=== PATIENT | female | born 1945 | race African-American/Black ===

== ENCOUNTER 2016-06-18 13:02 | Emergency (ER) | payer MEDICARE, OTHER ==
[~2016-06-18] VITALS: Ht 162.6 cm; Wt 108.9 kg
[~2016-06-18 13:02] MED LIST: ASPIRIN81 M3 PO; KEPPRA500 M4 ORAL; NKM; SIMVASTATIN20 MG ORAL
[2016-06-18 13:26] VITALS: BP 175/87
[2016-06-18 14:00] VITALS: BP 147/90
[2016-06-18 14:01] VITALS: BP 147/90
--- NOTE | 2016-06-18 15:07 | Emergency Room Report ---
History of Present Illness General Chief Complaint: General Complaint Source: Patient Present Illness HPI Patient has a history of epistaxis. She states that she had nosebleed 3 times in the last 3 days which made her concerned and then she came here for further evaluation. She denies any fever nausea vomiting diarrhea chills. Complains of some nasal congestion. Denies any cough runny nose or sore throat. Symptoms noted moderate moderate. She states that she had a large amount of bleeding with some clots yesterday which is what concerned her and she came for further evaluation. She denies any dizziness weakness or syncope.No other modifying factors. No other associated signs and symptoms. No other complaints were noted. She denies any nasal trauma although states that has been dry in house recently. Allergies: Coded Allergies: Cantaloupe (Verified Allergy, Unknown, 06/18/16) Patient History Past Medical History: none Past Surgical History: none Pertinent Family History: none Social History: Denies: alcohol use, drug use, smoking Reviewed Nursing Documentation: PMH: Agreed, PSxH: Agreed Nursing Documentation-PMH Past Medical History: No History, Except For Hx Cardiac Problems: No Hx Hypertension: No Hx Pacemaker: No Hx Asthma: No Hx COPD: No Hx Diabetes: No Hx Cancer: No Hx Gastrointestinal Problems: No Hx Dialysis: No History Of Psychiatric Problem: No Hx Neurological Problems: No Hx Cerebrovascular Accident: No Hx Seizures: Yes Review of Systems All Other Systems: negative except mentioned in HPI Physical Exam Vital Signs Date Time Temp Pulse Resp B/P Pulse Ox O2 Delivery O2 Flow Rate FiO2 06/18/16 13:08 98.1 87 16 175/87 94 Room Air Sp02 EP Interpretation: reviewed, normal General Appearance: normal inspection, well appearing, no apparent distress, alert Head: atraumatic Eyes: bilateral eye normal inspection ENT: normal ENT inspection, hearing grossly normal, normal voice Neck: normal inspection, full range of motion, supple, no bony tend Respiratory: normal inspection, lungs clear, normal breath sounds, no respiratory distress, no retraction, no wheezing Cardiovascular #1: regular rate, rhythm, no edema Gastrointestinal: normal inspection, normal bowel sounds, non tender, soft, no guarding, no hernia Genitourinary: no CVA tenderness Musculoskeletal: normal inspection, back normal, normal range of motion Neurologic: normal inspection, alert, responsive, speech normal Psychiatric: normal inspection, judgement/insight normal, mood/affect normal Skin: normal inspection, normal color, no rash Medical Decision Making Diagnostic Impression: Primary Impression: Anterior epistaxis ER Course Patient presents emergency department today complaining of a nosebleed. Differential considerations include anterior epistaxis, posterior epistaxis, arterial bleeding just name a few. Patient's exam is fairly benign. Bleeding has stopped. Differential I felt the patient discharged home. Patient's blood pressure was only slightly elevated. Recommend outpatient followup with primary care physician.Patient is advised to follow up with primary doctor in 2- 3 days and return the emergency room for any worsening symptoms and as needed. Last Vital Signs Date Time Temp Pulse Resp B/P Pulse Ox O2 Delivery O2 Flow Rate FiO2 06/18/16 14:01 98.1 18 147/90 97 Room Air 06/18/16 14:00 98 Status: improved Disposition: HOME, SELF-CARE Condition: Stable Patient Instructions: Nosebleed, Jyyo-il-Ivmc RYAN HUTTON M.D. Jun 18, 2016 15:07
== END 2016-06-18 14:05 | disposition home or self-care (01) ==
LOC: EMR 13:40
DX: R04.0 Epistaxis (principal); R09.81 Nasal congestion; Z91.018 Allergy to other foods
CPT/HCPCS: 99282

== ENCOUNTER 2017-12-26 15:27 | Emergency (ER) | payer MEDICARE ==
[~2017-12-26] VITALS: Ht 165.1 cm; Wt 121.6 kg
--- NOTE | 2017-12-26 16:43 | Diagnostic Imaging Report ---
Indication: Chest pain Technique: One view of the chest Comparison: 03/11/2014 Findings: Lungs and pleural spaces are clear. Heart size is upper limits normal. No significant interim change Impression: No acute process
[2017-12-26 17:51] LABS: BASOPHILS % (AUTO) 1.8 % (0.0-2.0); EOSINOPHILS % (AUTO) 1.1 % (0.0-3.0); HEMOGLOBIN 14.3 G/DL (12.0-16.0); LYMPHOCYTES % (AUTO) 17.8 % (20.0-45.0); MEAN CORPUSCULAR VOLUME 86 FL (80-99); MONOCYTES % (AUTO) 6.6 % (1.0-10.0); NEUTROPHILS % (AUTO) 72.8 % (45.0-75.0); PLATELET COUNT 286 K/UL (150-450); RED BLOOD COUNT 4.89 M/UL (4.20-5.40); RED CELL DISTRIBUTION WIDTH 11.5 % (11.6-14.8); WHITE BLOOD COUNT 10.9 K/UL (4.8-10.8)
[2017-12-26 18:04] LABS: ANION GAP 9 mmol/L (5-15); BLOOD UREA NITROGEN 12 mg/dL (7-18); CALCIUM 9.5 MG/DL (8.5-10.1); CARBON DIOXIDE 26 MMOL/L (21-32); CHLORIDE 102 MMOL/L (98-107); CREATININE 0.7 MG/DL (0.55-1.30); POTASSIUM 4.2 MMOL/L (3.5-5.1); SODIUM 137 MMOL/L (136-145)
[2017-12-26 18:19] LABS: ALANINE AMINOTRANSFERASE 24 U/L (12-78); ALBUMIN 3.5 G/DL (3.4-5.0); ALBUMIN/GLOBULIN RATIO 0.8 (1.0-2.7); ALKALINE PHOSPHATASE 62 U/L (46-116); ASPARTATE AMINO TRANSFERASE 17 U/L (15-37); BILIRUBIN,TOTAL 0.5 MG/DL (0.2-1.0); CKMB < 0.5 NG/ML (0.0-3.6); CREATINE KINASE 43 U/L (26-308)
--- NOTE | 2017-12-26 18:36 | Emergency Room Report ---
History of Present Illness General Chief Complaint: Generalized Weakness Source: Patient Present Illness HPI This patient states she's had recurrent episodes of lightheadedness and presyncope. She was recently admitted to [facility] for the same symptoms. He was also seen in her primary care physician's office today. Primary care physician noted that she had orthostatic hypotension. The patient does admit that she doesn't drink much water or fluids. She denies recent illness. She denies cough or congestion. She is fever or chills. She is headache or neck pain. She denies abdominal pain. She denies dysuria or hematuria. She has no other complaints. Allergies: Coded Allergies: Cantaloupe (Verified Allergy, Unknown, 06/18/16) Patient History Past Medical History: see triage record, CVA/TIA, seizures Social History: Denies: smoking, alcohol use, drug use Now: No Reviewed Nursing Documentation: PMH: Agreed; PSxH: Agreed Nursing Documentation-PMH Hx Cardiac Problems: No Hx Hypertension: No Hx Pacemaker: No Hx Asthma: No Hx COPD: No Hx Diabetes: No Hx Cancer: No Hx Gastrointestinal Problems: No Hx Dialysis: No Hx Neurological Problems: No Hx Cerebrovascular Accident: Yes Hx Seizures: Yes Review of Systems All Other Systems: negative except mentioned in HPI Physical Exam Vital Signs Date Time Temp Pulse Resp B/P (MAP) Pulse Ox O2 Delivery O2 Flow Rate FiO2 12/26/17 15:49 91 20 121/86 98 Room Air Sp02 EP Interpretation: reviewed, normal General Appearance: no apparent distress, alert, GCS 15, non-toxic Head: normocephalic, atraumatic Eyes: bilateral eye normal inspection, bilateral eye PERRL ENT: hearing grossly normal, normal pharynx, no angioedema, normal voice Neck: full range of motion, supple/symm/no masses Respiratory: chest non-tender, lungs clear, normal breath sounds, no respiratory distress, no retraction, no accessory muscle use, speaking full sentences Cardiovascular #1: regular rate, rhythm, no edema Gastrointestinal: normal bowel sounds, non tender, soft, non-distended, no guarding, no rebound Rectal: deferred Musculoskeletal: back normal, gait/station normal, normal range of motion, non- tender Neurologic: alert, oriented x3, responsive, motor strength/tone normal, sensory intact, speech normal Psychiatric: judgement/insight normal, memory normal, mood/affect normal, no suicidal/homicidal ideation Skin: normal color, no rash, warm/dry, well hydrated Medical Decision Making Diagnostic Impression: Primary Impression: Orthostatic hypotension Additional Impressions: Dehydration UTI (urinary tract infection) ER Course I suspect the presyncope that the patient is presenting with is a nonemergent in etiology. The patient was recently admitted to [facility] and had a full workup at that time. On physical exam, the patient is not hypotensive currently, although, the patient's primary care physician reports orthostatic hypotension, she has no findings of CHF, and no significant cardiac murmur suggestive of valvular heart disease or cardiac outflow obstruction. EKG showed no evidence of concerning findings of QT prolongation, Brugada syndrome or significant ST changes suggestive of acute ischemia, dysrhythmias or significant conduction abnormalities. On laboratory evaluation, blood sugar was normal and the patient is not anemic. The patient was counseled that, though unlikely, the possibility of an emergent cause of syncope may be present and that the patient should return immediately if symptoms persist or worsen. I believe the patient is stable for discharge to followup with her PMD for further workup. She is noted to have a urinary tract infection and will be given a course of antibiotics. Laboratory Tests Test 12/26/17 17:10 12/26/17 19:00 White Blood Count 10.9 K/UL (4.8-10.8) H Red Blood Count 4.89 M/UL (4.20-5.40) Hemoglobin 14.3 G/DL (12.0-16.0) Hematocrit 42.0 % (37.0-47.0) Mean Corpuscular Volume 86 FL (80-99) Mean Corpuscular Hemoglobin 29.3 PG (27.0-31.0) Mean Corpuscular Hemoglobin Concent 34.1 G/DL (32.0-36.0) Red Cell Distribution Width 11.5 % (11.6-14.8) L Platelet Count 286 K/UL (150-450) Mean Platelet Volume 9.4 FL (6.5-10.1) Neutrophils (%) (Auto) 72.8 % (45.0-75.0) Lymphocytes (%) (Auto) 17.8 % (20.0-45.0) L Monocytes (%) (Auto) 6.6 % (1.0-10.0) Eosinophils (%) (Auto) 1.1 % (0.0-3.0) Basophils (%) (Auto) 1.8 % (0.0-2.0) Sodium Level 137 MMOL/L (136-145) Potassium Level 4.2 MMOL/L (3.5-5.1) Chloride Level 102 MMOL/L (98-107) Carbon Dioxide Level 26 MMOL/L (21-32) Anion Gap 9 mmol/L (5-15) Blood Urea Nitrogen 12 mg/dL (7-18) Creatinine 0.7 MG/DL (0.55-1.30) Estimate Glomerular Filtration Rate > 60 mL/min (>60) Glucose Level 120 MG/DL (74-106) H Lactic Acid Level 1.40 mmol/L (0.4-2.0) Calcium Level 9.5 MG/DL (8.5-10.1) Total Bilirubin 0.5 MG/DL (0.2-1.0) Aspartate Amino Transferase (AST) 17 U/L (15-37) Alanine Aminotransferase (ALT) 24 U/L (12-78) Alkaline Phosphatase 62 U/L (46-116) Total Creatine Kinase 43 U/L (26-308) Creatine Kinase MB < 0.5 NG/ML (0.0-3.6) Creatine Kinase MB Relative Index 1.1 Troponin I 0.002 ng/mL (0.000-0.056) Total Protein 8.1 G/DL (6.4-8.2) Albumin 3.5 G/DL (3.4-5.0) Globulin 4.6 g/dL Albumin/Globulin Ratio 0.8 (1.0-2.7) L Urine Color Pale yellow Urine Appearance Clear Urine pH 5 (4.5-8.0) Urine Specific [place] 1.010 (1.005-1.035) Urine Protein Negative (NEGATIVE) Urine Glucose (UA) Negative (NEGATIVE) Urine Ketones Negative (NEGATIVE) Urine Blood 5+ (NEGATIVE) H Urine Nitrite Negative (NEGATIVE) Urine Bilirubin Negative (NEGATIVE) Urine Urobilinogen Normal MG/DL (0.0-1.0) Urine Leukocyte Esterase 2+ (NEGATIVE) H Urine RBC 10-15 /HPF (0 - 2) H Urine WBC 5-10 /HPF (0 - 2) H Urine Squamous Epithelial Cells Few /LPF (NONE/OCC) Urine Bacteria Few /HPF (NONE) Laboratory Tests Test 12/26/17 17:10 12/26/17 19:00 White Blood Count 10.9 K/UL (4.8-10.8) H Red Blood Count 4.89 M/UL (4.20-5.40) Hemoglobin 14.3 G/DL (12.0-16.0) Hematocrit 42.0 % (37.0-47.0) Mean Corpuscular Volume 86 FL (80-99) Mean Corpuscular Hemoglobin 29.3 PG (27.0-31.0) Mean Corpuscular Hemoglobin Concent 34.1 G/DL (32.0-36.0) Red Cell Distribution Width 11.5 % (11.6-14.8) L Platelet Count 286 K/UL (150-450) Mean Platelet Volume 9.4 FL (6.5-10.1) Neutrophils (%) (Auto) 72.8 % (45.0-75.0) Lymphocytes (%) (Auto) 17.8 % (20.0-45.0) L Monocytes (%) (Auto) 6.6 % (1.0-10.0) Eosinophils (%) (Auto) 1.1 % (0.0-3.0) Basophils (%) (Auto) 1.8 % (0.0-2.0) Sodium Level 137 MMOL/L (136-145) Potassium Level 4.2 MMOL/L (3.5-5.1) Chloride Level 102 MMOL/L (98-107) Carbon Dioxide Level 26 MMOL/L (21-32) Anion Gap 9 mmol/L (5-15) Blood Urea Nitrogen 12 mg/dL (7-18) Creatinine 0.7 MG/DL (0.55-1.30) Estimate Glomerular Filtration Rate > 60 mL/min (>60) Glucose Level 120 MG/DL (74-106) H Lactic Acid Level 1.40 mmol/L (0.4-2.0) Calcium Level 9.5 MG/DL (8.5-10.1) Total Bilirubin 0.5 MG/DL (0.2-1.0) Aspartate Amino Transferase (AST) 17 U/L (15-37) Alanine Aminotransferase (ALT) 24 U/L (12-78) Alkaline Phosphatase 62 U/L (46-116) Total Creatine Kinase 43 U/L (26-308) Creatine Kinase MB < 0.5 NG/ML (0.0-3.6) Creatine Kinase MB Relative Index 1.1 Troponin I 0.002 ng/mL (0.000-0.056) Total Protein 8.1 G/DL (6.4-8.2) Albumin 3.5 G/DL (3.4-5.0) Globulin 4.6 g/dL Albumin/Globulin Ratio 0.8 (1.0-2.7) L Urine Color Pale yellow Urine Appearance Clear Urine pH 5 (4.5-8.0) Urine Specific [place] 1.010 (1.005-1.035) Urine Protein Negative (NEGATIVE) Urine Glucose (UA) Negative (NEGATIVE) Urine Ketones Negative (NEGATIVE) Urine Blood 5+ (NEGATIVE) H Urine Nitrite Negative (NEGATIVE) Urine Bilirubin Negative (NEGATIVE) Urine Urobilinogen Normal MG/DL (0.0-1.0) Urine Leukocyte Esterase 2+ (NEGATIVE) H Urine RBC Pending Urine WBC Pending Urine Squamous Epithelial Cells Pending Urine Bacteria Pending EKG Diagnostic Results Rate: normal Rhythm: NSR ST Segments: no acute changes Other Impression Qwave in lead III Rhythm Strip Diag. Results EP Interpretation: yes Rate: 80's Rhythm: NSR, no PVC's, no ectopy Chest X-Ray Diagnostic Results Chest X-Ray Diagnostic Results : Chest X-Ray Ordered: Yes # of Views/Limited/Complete: 1 View Indication: Other Interpretation: no consolidation, no effusion, no pneumothorax, no acute cardiopulmonary disease Impression: No acute disease Last Vital Signs Date Time Temp Pulse Resp B/P (MAP) Pulse Ox O2 Delivery O2 Flow Rate FiO2 12/26/17 15:49 91 20 121/86 98 Room Air Status: improved Disposition: HOME, SELF-CARE Condition: Improved Patient Instructions: Near-Syncope, Uvkv-yr-Iolf Edita Silva DO Dec 26, 2017 18:36
[2017-12-26 19:16] LABS: APPEARANCE,URINE CLEAR; BILIRUBIN, URINE NEGATIVE (NEGATIVE); COLOR,URINE PALE YELLOW; GLUCOSE, URINE (UA) NEGATIVE (NEGATIVE); KETONES,URINE NEGATIVE (NEGATIVE); LEUKOCYTE ESTERASE ,URINE 2+ (NEGATIVE); NITRITE,URINE NEGATIVE (NEGATIVE); PH,URINE 5 (4.5-8.0); PROTEIN,URINE NEGATIVE (NEGATIVE); UROBILINOGEN,URINE NORMAL MG/DL (0.0-1.0)
[2017-12-26] MEDS ORDERED: NITROFURANTOIN100 M2 ORAL (19:34)
[2017-12-26 19:47] VITALS: BP 130/88
[2017-12-26 19:51] VITALS: BP 130/88
[2017-12-27] MEDS ORDERED: KEPPRA500 M4 ORAL (17:27)
[2017-12-27] MEDS ORDERED: ASPIR 8181 MG ORAL (17:27)
[2017-12-27] MEDS ORDERED: SIMVASTATIN20 MG ORAL (17:27)
--- NOTE | 2017-12-28 15:09 | Cardiology Report ---
APPROVED REPORT EKG Measurement Heart [id number] Normal sinus rhythm Cannot rule out Anterior infarct, age undetermined Abnormal ECG
== END 2017-12-26 20:41 | disposition home or self-care (01) ==
LOC: EMR 17:40
DX: I95.1 Orthostatic hypotension (principal); E86.0 Dehydration; N39.0 Urinary tract infection, site not specified
CPT/HCPCS: 36415; 71045; 80053; 81003; 82550; 82553; 83605; 84484; 85025; 87040; 93005; 96360; 99284

== ENCOUNTER 2017-12-27 16:19 | Inpatient (IN) | payer MEDICARE, MEDICAID ==
[~2017-12-27] VITALS: Ht 162.6 cm; Wt 121.6 kg
[~2017-12-27 16:19] MED LIST changes: +NITROFURANTOIN100 M2 ORAL
[2017-12-27 16:41] VITALS: BP 127/82
[2017-12-27] MEDS ORDERED: KEPPRA500 M4 ORAL (17:27)
[2017-12-27] MEDS ORDERED: ASPIR 8181 MG ORAL (17:27)
[2017-12-27] MEDS ORDERED: SIMVASTATIN20 MG ORAL (17:27)
[2017-12-27] MEDS ORDERED: Ampicillin/Sulbactam Sod 3 GM in NS 110 ML IVPB ONE (17:30)
[2017-12-27 17:52] LABS: BASOPHILS % (AUTO) 1.6 % (0.0-2.0); EOSINOPHILS % (AUTO) 1.8 % (0.0-3.0); HEMATOCRIT 40.6 % (37.0-47.0); HEMOGLOBIN 13.8 G/DL (12.0-16.0); LYMPHOCYTES % (AUTO) 25.4 % (20.0-45.0); MEAN CORPUSCULAR VOLUME 86 FL (80-99); MONOCYTES % (AUTO) 5.7 % (1.0-10.0); NEUTROPHILS % (AUTO) 65.5 % (45.0-75.0); PLATELET COUNT 294 K/UL (150-450); RED BLOOD COUNT 4.71 M/UL (4.20-5.40); RED CELL DISTRIBUTION WIDTH 11.3 % (11.6-14.8); WHITE BLOOD COUNT 8.5 K/UL (4.8-10.8)
[2017-12-27 17:57] LABS: ANION GAP 12 mmol/L (5-15); BLOOD UREA NITROGEN 7 mg/dL (7-18); CALCIUM 9.1 MG/DL (8.5-10.1); CARBON DIOXIDE 23 MMOL/L (21-32); CHLORIDE 105 MMOL/L (98-107); CREATININE 0.6 MG/DL (0.55-1.30); POTASSIUM 3.8 MMOL/L (3.5-5.1); SODIUM 140 MMOL/L (136-145)
[2017-12-27 18:03] LABS: ALANINE AMINOTRANSFERASE 26 U/L (12-78); ALBUMIN 3.4 G/DL (3.4-5.0); ALBUMIN/GLOBULIN RATIO 0.8 (1.0-2.7); ALKALINE PHOSPHATASE 58 U/L (46-116); ASPARTATE AMINO TRANSFERASE 14 U/L (15-37); BILIRUBIN,TOTAL 0.8 MG/DL (0.2-1.0)
--- NOTE | 2017-12-27 18:44 | History & Physical ---
History and Physical History & Physicial DATE OF ADMISSION: 12/27/17 REASON FOR ADMISSION: positive blood culture HISTORY OF PRESENT ILLNESS: This is a 72-year-old obese female with history of htn, Seizure disorder, CVA who presented to the ER yesterday for orthostatic hypotension, dizziness and weakness. She was seen in my office in a wheelchair and stated she couldnt stand bc of weakness. Orthostatics were positive in office from laying to sitting (SBP Drop of 30). she was given IVF and had Bcx yesterday in ER prior to dc home. She was called and told to return bc of GPC blood culture. She denies fevers or chills. She denies having dysuria. PAST MEDICAL HISTORY: HTN, CVA, Seizure PAST SURGICAL HISTORY: Right knee surgery and right shoulder surgery after fall in a Workmen's comp case. MEDICATIONS: ASA, Statin ALLERGIES: No known drug allergies. PAST SOCIAL HISTORY: She denies smoking cigarette, using drugs, or drinking alcohol. FAMILY HISTORY: Noncontributory. REVIEW OF SYSTEMS: A 10-point review of systems was done and negative except pertinent positives as mentioned above. Last 24 Hour Vital Signs Date Time Temp Pulse Resp B/P (MAP) Pulse Ox O2 Delivery O2 Flow Rate FiO2 12/27/17 16:41 99.1 87 16 127/82 93 Room Air 12/27/17 16:35 99.1 87 16 127/82 93 Room Air PHYSICAL EXAMINATION: GENERAL: The patient is in no acute distress. The patient is alert, awake, HEENT: Oropharynx is clear. No blood seen. Sclerae are anicteric. Normocephalic/atraumatic head. NECK: Supple. No JVD. LUNGS: Clear to auscultation bilaterally. HEART: Heart sounds are regular rate rhythm. Normal S1 and S2. ABDOMEN: Obese, nontender, and nondistended. EXTREMITIES: No clubbing, cyanosis, or edema. SKIN: No jaundice or decubitus ulcers noted. PSYCHIATRY: The patient has appropriate affect and mood. LABORATORY DATA: Laboratory Tests Test 12/27/17 17:10 12/27/17 17:26 White Blood Count 8.5 K/UL (4.8-10.8) Red Blood Count 4.71 M/UL (4.20-5.40) Hemoglobin 13.8 G/DL (12.0-16.0) Hematocrit 40.6 % (37.0-47.0) Mean Corpuscular Volume 86 FL (80-99) Mean Corpuscular Hemoglobin 29.3 PG (27.0-31.0) Mean Corpuscular Hemoglobin Concent 34.1 G/DL (32.0-36.0) Red Cell Distribution Width 11.3 % (11.6-14.8) L Platelet Count 294 K/UL (150-450) Mean Platelet Volume 9.5 FL (6.5-10.1) Neutrophils (%) (Auto) 65.5 % (45.0-75.0) Lymphocytes (%) (Auto) 25.4 % (20.0-45.0) Monocytes (%) (Auto) 5.7 % (1.0-10.0) Eosinophils (%) (Auto) 1.8 % (0.0-3.0) Basophils (%) (Auto) 1.6 % (0.0-2.0) Sodium Level 140 MMOL/L (136-145) Potassium Level 3.8 MMOL/L (3.5-5.1) Chloride Level 105 MMOL/L (98-107) Carbon Dioxide Level 23 MMOL/L (21-32) Anion Gap 12 mmol/L (5-15) Blood Urea Nitrogen 7 mg/dL (7-18) Creatinine 0.6 MG/DL (0.55-1.30) Estimat Glomerular Filtration Rate > 60 mL/min (>60) Glucose Level 121 MG/DL (74-106) H Calcium Level 9.1 MG/DL (8.5-10.1) Total Bilirubin 0.8 MG/DL (0.2-1.0) Aspartate Amino Transf (AST/SGOT) 14 U/L (15-37) L Alanine Aminotransferase (ALT/SGPT) 26 U/L (12-78) Alkaline Phosphatase 58 U/L (46-116) Total Protein 7.8 G/DL (6.4-8.2) Albumin 3.4 G/DL (3.4-5.0) Globulin 4.4 g/dL Albumin/Globulin Ratio 0.8 (1.0-2.7) L Lactic Acid Level 1.20 mmol/L (0.4-2.0) IMPRESSION: 1. Bacteremia - possibly contaminent 2. Orthostatic hypotension 3. weakness 4. Hypertension. 5. Morbid obesity. 6. Seizure d/o PLAN: 1. Admit to Medsurg 2. c/w keppra 3. PT eval 4. IVF - NS @ 75cc/hr 5. repeat cx 6. f/u cultures 7. abx - Vanco anticipate patient needs to go to SNF bc of severe weakness DVT px - heparin FC Kj Delgado MD Dec 27, 2017 18:44
--- NOTE | 2017-12-27 18:45 | Emergency Room Report ---
History of Present Illness General Chief Complaint: Abnormal Labs Source: Patient Present Illness HPI Patient is a 72-year-old female presented after increased generalized weakness and dizziness. The patient recent positive blood cultures while in emergency department yesterday for gram-positive cocci. The patient was having continued generalized weakness. She reports feeling dizzy with standing. The patient was noted to be orthostatic while at the primary care physician's office yesterday. The urinalysis showed some evidence of urinary infection yesterday Allergies: Coded Allergies: Cantaloupe (Verified Allergy, Unknown, 06/18/16) Patient History Past Medical History: see triage record Reviewed Nursing Documentation: PMH: Agreed; PSxH: Agreed Nursing Documentation-PMH Past Medical History: No History, Except For Hx Cardiac Problems: No - high cholesterol Hx Hypertension: No Hx Pacemaker: No Hx Asthma: No Hx COPD: No Hx Diabetes: No Hx Cancer: No Hx Gastrointestinal Problems: No Hx Dialysis: No Hx Neurological Problems: No Hx Cerebrovascular Accident: Yes Hx Seizures: Yes Review of Systems All Other Systems: negative except mentioned in HPI Physical Exam Vital Signs Date Time Temp Pulse Resp B/P (MAP) Pulse Ox O2 Delivery O2 Flow Rate FiO2 12/27/17 16:35 99.1 87 16 127/82 93 Room Air Sp02 EP Interpretation: reviewed, normal General Appearance: normal inspection, well appearing, no apparent distress, alert, GCS 15, obese Head: atraumatic ENT: normal ENT inspection, hearing grossly normal, normal voice Neck: normal inspection, supple, no bony tend, limited range of motion Respiratory: normal inspection, lungs clear, normal breath sounds, no respiratory distress, no retraction, no wheezing Cardiovascular #1: regular rate, rhythm Gastrointestinal: normal inspection, normal bowel sounds, non tender, soft, no guarding, no hernia Genitourinary: no CVA tenderness Musculoskeletal: normal inspection, back normal, normal range of motion Neurologic: normal inspection, alert, oriented x3, responsive, auditing clerk III-XII nml as tested, speech normal Psychiatric: normal inspection, judgement/insight normal, mood/affect normal Skin: normal inspection, normal color, no rash Medical Decision Making Diagnostic Impression: Primary Impression: Gram positive sepsis ER Course Patient presented for generalized weakness. Differential diagnosis included was not limited to anemia, urinary tract infection, electrolyte abnormality, hypothyroidism, myocardial infarction, myasthenia gravis, dehydration, among others. Because of complexity of patient's case laboratory testing and imaging studies were ordered.Patient was noted to have normal white blood count per she started empirically on IV antibiotics. The lactic acid level was normal.Dr. Kj Delgado was contacted for inpatient management Labs Test 12/27/17 17:10 12/27/17 17:26 White Blood Count 8.5 K/UL (4.8-10.8) Red Blood Count 4.71 M/UL (4.20-5.40) Hemoglobin 13.8 G/DL (12.0-16.0) Hematocrit 40.6 % (37.0-47.0) Mean Corpuscular Volume 86 FL (80-99) Mean Corpuscular Hemoglobin 29.3 PG (27.0-31.0) Mean Corpuscular Hemoglobin Concent 34.1 G/DL (32.0-36.0) Red Cell Distribution Width 11.3 % (11.6-14.8) Platelet Count 294 K/UL (150-450) Mean Platelet Volume 9.5 FL (6.5-10.1) Neutrophils (%) (Auto) 65.5 % (45.0-75.0) Lymphocytes (%) (Auto) 25.4 % (20.0-45.0) Monocytes (%) (Auto) 5.7 % (1.0-10.0) Eosinophils (%) (Auto) 1.8 % (0.0-3.0) Basophils (%) (Auto) 1.6 % (0.0-2.0) Sodium Level 140 MMOL/L (136-145) Potassium Level 3.8 MMOL/L (3.5-5.1) Chloride Level 105 MMOL/L (98-107) Carbon Dioxide Level 23 MMOL/L (21-32) Anion Gap 12 mmol/L (5-15) Blood Urea Nitrogen 7 mg/dL (7-18) Creatinine 0.6 MG/DL (0.55-1.30) Estimat Glomerular Filtration Rate > 60 mL/min (>60) Glucose Level 121 MG/DL (74-106) Calcium Level 9.1 MG/DL (8.5-10.1) Total Bilirubin 0.8 MG/DL (0.2-1.0) Aspartate Amino Transf (AST/SGOT) 14 U/L (15-37) Alanine Aminotransferase (ALT/SGPT) 26 U/L (12-78) Alkaline Phosphatase 58 U/L (46-116) Total Protein 7.8 G/DL (6.4-8.2) Albumin 3.4 G/DL (3.4-5.0) Globulin 4.4 g/dL Albumin/Globulin Ratio 0.8 (1.0-2.7) Lactic Acid Level 1.20 mmol/L (0.4-2.0) Last Vital Signs Date Time Temp Pulse Resp B/P (MAP) Pulse Ox O2 Delivery O2 Flow Rate FiO2 12/27/17 16:41 99.1 87 16 127/82 93 Room Air Status: unchanged Disposition: ADMITTED INPATIENT Condition: Stable Referrals: Kj Delgado MD (PCP) Ruel Enriquez MD Dec 27, 2017 18:45
[2017-12-27 19:23] VITALS: BP 139/77
[2017-12-27 19:46] VITALS: BP 147/89
[2017-12-27] MEDS ORDERED: Vancomycin 1.5 GM/D5W 250ML IVPB SCH ×2 (20:00→21:00)
[2017-12-27] MEDS: Aspirin EC 81mg tab ORAL SCH (21:12)
[2017-12-27] MEDS: Heparin 5000 units/ml inj SUBQ SCH (21:17)
[2017-12-28] VITALS: BP 130/71
[2017-12-28 04:00] VITALS: BP 128/72
[2017-12-28 08:00] VITALS: BP 112/69
[2017-12-28 08:16] LABS: EOSINOPHILS % (AUTO) 2.6 % (0.0-3.0); HEMATOCRIT 35.7 % (37.0-47.0); LYMPHOCYTES % (AUTO) 30.3 % (20.0-45.0); MEAN CORPUSCULAR VOLUME 84 FL (80-99); MONOCYTES % (AUTO) 8.8 % (1.0-10.0); NEUTROPHILS % (AUTO) 57.4 % (45.0-75.0); PLATELET COUNT 238 K/UL (150-450); RED BLOOD COUNT 4.25 M/UL (4.20-5.40); RED CELL DISTRIBUTION WIDTH 11.7 % (11.6-14.8); WHITE BLOOD COUNT 8.4 K/UL (4.8-10.8)
[2017-12-28 08:44] LABS: ANION GAP 8 mmol/L (5-15); BLOOD UREA NITROGEN 10 mg/dL (7-18); CALCIUM 8.5 MG/DL (8.5-10.1); CARBON DIOXIDE 26 MMOL/L (21-32); CHLORIDE 107 MMOL/L (98-107); CREATININE 0.7 MG/DL (0.55-1.30); POTASSIUM 3.7 MMOL/L (3.5-5.1); SODIUM 141 MMOL/L (136-145)
[2017-12-28] MEDS ORDERED: Vancomycin 1gm in D5W 275ml IVPB SCH (09:00)
[2017-12-28] MEDS: Aspirin EC 81mg tab ORAL SCH (09:13)
[2017-12-28] MEDS: Heparin 5000 units/ml inj SUBQ SCH ×2 (09:15→21:12)
[2017-12-28 12:00] VITALS: BP 116/69
--- NOTE | 2017-12-28 14:22 | General Progress Note ---
Assessment/Plan Problem List: (1) Gram positive sepsis ICD Codes: A41.89 - Other specified sepsis SNOMED: 970698478 (2) Hypertension ICD Codes: I10 - Hypertension SNOMED: 96769388 (3) Seizure disorder ICD Codes: G40.909 - Epilepsy, unspecified, not intractable,without status epilepticus SNOMED: 053418408 (4) Old lacunar stroke without late effect ICD Codes: Z86.73 - Old lacunar stroke without late effect SNOMED: 367725920 Assessment/Plan abxs continue with seizure meds PT Subjective Allergies: Coded Allergies: Cantaloupe (Verified Allergy, Unknown, 06/18/16) Subjective feels better Objective Last 24 Hour Vital Signs Date Time Temp Pulse Resp B/P (MAP) Pulse Ox O2 Delivery O2 Flow Rate FiO2 12/28/17 12:00 97.4 69 18 116/69 (85) 100 12/28/17 12:00 73 12/28/17 09:00 Room Air 12/28/17 08:00 74 12/28/17 08:00 98.2 73 18 112/69 (83) 96 12/28/17 06:36 86 90 12/28/17 04:00 97.9 74 18 128/72 (90) 98 12/28/17 04:00 74 12/28/17 00:00 97.6 73 18 130/71 (90) 100 12/28/17 00:00 79 12/27/17 22:50 Room Air 12/27/17 20:00 84 12/27/17 19:46 98.0 86 18 147/89 (108) 97 12/27/17 19:25 98.2 87 16 139/77 100 Room Air 12/27/17 19:23 98.2 68 16 139/77 100 Room Air 12/27/17 16:41 99.1 87 16 127/82 93 Room Air 12/27/17 16:35 99.1 87 16 127/82 93 Room Air Intake and Output 12/27/17 12/28/17 19:00 07:00 Intake Total 110 ml 760 ml Balance 110 ml 760 ml Intake Oral 0 ml 100 ml IV Total 110 ml 660 ml # Voids 3 Laboratory Tests 12/27/17 17:10: White Blood Count 8.5, Red Blood Count 4.71, Hemoglobin 13.8, Hematocrit 40.6, Mean Corpuscular Volume 86, Mean Corpuscular Hemoglobin 29.3, Mean Corpuscular Hemoglobin Concent 34.1, Red Cell Distribution Width 11.3L, Platelet Count 294, Mean Platelet Volume 9.5, Neutrophils (%) (Auto) 65.5, Lymphocytes (%) (Auto) 25.4, Monocytes (%) (Auto) 5.7, Eosinophils (%) (Auto) 1.8, Basophils (%) (Auto ) 1.6, Sodium Level 140, Potassium Level 3.8, Chloride Level 105, Carbon Dioxide Level 23, Anion Gap 12, Blood Urea Nitrogen 7, Creatinine 0.6, Estimat Glomerular Filtration Rate > 60, Glucose Level 121H, Calcium Level 9.1, Total Bilirubin 0.8, Aspartate Amino Transf (AST/SGOT) 14L, Alanine Aminotransferase ( ALT/SGPT) 26, Alkaline Phosphatase 58, Total Protein 7.8, Albumin 3.4, Globulin 4.4, Albumin/Globulin Ratio 0.8L 12/27/17 17:26: Lactic Acid Level 1.20 12/28/17 06:35: White Blood Count 8.4, Red Blood Count 4.25, Hemoglobin 12.0, Hematocrit 35.7L, Mean Corpuscular Volume 84, Mean Corpuscular Hemoglobin 28.3, Mean Corpuscular Hemoglobin Concent 33.6, Red Cell Distribution Width 11.7, Platelet Count 238, Mean Platelet Volume 9.7, Neutrophils (%) (Auto) 57.4, Lymphocytes (%) (Auto) 30.3, Monocytes (%) (Auto) 8.8, Eosinophils (%) (Auto) 2.6, Basophils (%) (Auto ) 1.0, Sodium Level 141, Potassium Level 3.7, Chloride Level 107, Carbon Dioxide Level 26, Anion Gap 8, Blood Urea Nitrogen 10, Creatinine 0.7, Estimat Glomerular Filtration Rate > 60, Glucose Level 107H, Calcium Level 8.5 Height (Feet): 5 Height (Inches): 4.00 Weight (Pounds): 268 Cardiovascular: normal rate Respiratory/Chest: lungs clear Abdomen: soft Andriy Fernando MD Dec 28, 2017 14:22
--- NOTE | 2017-12-28 14:42 | Infectious Diseases Prog Note ---
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 sepsis, ? contaminant 2) recent + ua, ? uti 3) pmh noted P) 1) vancomycin, rocephin 2) check blood cultures, labs and ua/uc 3) thank you Subjective Allergies: Coded Allergies: April (Verified Allergy, Unknown, 06/18/16) Objective Vital Signs Last 24 Hour Vital Signs Date Time Temp Pulse Resp B/P (MAP) Pulse Ox O2 Delivery O2 Flow Rate FiO2 12/28/17 12:00 97.4 69 18 116/69 (85) 100 12/28/17 12:00 73 12/28/17 09:00 Room Air 12/28/17 08:00 74 12/28/17 08:00 98.2 73 18 112/69 (83) 96 12/28/17 06:36 86 90 12/28/17 04:00 97.9 74 18 128/72 (90) 98 12/28/17 04:00 74 12/28/17 00:00 97.6 73 18 130/71 (90) 100 12/28/17 00:00 79 12/27/17 22:50 Room Air 12/27/17 20:00 84 12/27/17 19:46 98.0 86 18 147/89 (108) 97 12/27/17 19:25 98.2 87 16 139/77 100 Room Air 12/27/17 19:23 98.2 68 16 139/77 100 Room Air 12/27/17 16:41 99.1 87 16 127/82 93 Room Air 12/27/17 16:35 99.1 87 16 127/82 93 Room Air Height (Feet): 5 Height (Inches): 4.00 Weight (Pounds): 268 Microbiology Date/Time Source Procedure Growth Status 12/27/17 18:00 Rectum Received Laboratory Tests Test 12/27/17 17:10 12/27/17 17:26 12/28/17 06:35 White Blood Count 8.5 K/UL (4.8-10.8) 8.4 K/UL (4.8-10.8) Red Blood Count 4.71 M/UL (4.20-5.40) 4.25 M/UL (4.20-5.40) Hemoglobin 13.8 G/DL (12.0-16.0) 12.0 G/DL (12.0-16.0) Hematocrit 40.6 % (37.0-47.0) 35.7 % (37.0-47.0) L Mean Corpuscular Volume 86 FL (80-99) 84 FL (80-99) Mean Corpuscular Hemoglobin 29.3 PG (27.0-31.0) 28.3 PG (27.0-31.0) Mean Corpuscular Hemoglobin Concent 34.1 G/DL (32.0-36.0) 33.6 G/DL (32.0-36.0) Red Cell Distribution Width 11.3 % (11.6-14.8) L 11.7 % (11.6-14.8) Platelet Count 294 K/UL (150-450) 238 K/UL (150-450) Mean Platelet Volume 9.5 FL (6.5-10.1) 9.7 FL (6.5-10.1) Neutrophils (%) (Auto) 65.5 % (45.0-75.0) 57.4 % (45.0-75.0) Lymphocytes (%) (Auto) 25.4 % (20.0-45.0) 30.3 % (20.0-45.0) Monocytes (%) (Auto) 5.7 % (1.0-10.0) 8.8 % (1.0-10.0) Eosinophils (%) (Auto) 1.8 % (0.0-3.0) 2.6 % (0.0-3.0) Basophils (%) (Auto) 1.6 % (0.0-2.0) 1.0 % (0.0-2.0) Sodium Level 140 MMOL/L (136-145) 141 MMOL/L (136-145) Potassium Level 3.8 MMOL/L (3.5-5.1) 3.7 MMOL/L (3.5-5.1) Chloride Level 105 MMOL/L (98-107) 107 MMOL/L (98-107) Carbon Dioxide Level 23 MMOL/L (21-32) 26 MMOL/L (21-32) Anion Gap 12 mmol/L (5-15) 8 mmol/L (5-15) Blood Urea Nitrogen 7 mg/dL (7-18) 10 mg/dL (7-18) Creatinine 0.6 MG/DL (0.55-1.30) 0.7 MG/DL (0.55-1.30) Estimat Glomerular Filtration Rate > 60 mL/min (>60) > 60 mL/min (>60) Glucose Level 121 MG/DL (74-106) H 107 MG/DL (74-106) H Calcium Level 9.1 MG/DL (8.5-10.1) 8.5 MG/DL (8.5-10.1) Total Bilirubin 0.8 MG/DL (0.2-1.0) Aspartate Amino Transf (AST/SGOT) 14 U/L (15-37) L Alanine Aminotransferase (ALT/SGPT) 26 U/L (12-78) Alkaline Phosphatase 58 U/L (46-116) Total Protein 7.8 G/DL (6.4-8.2) Albumin 3.4 G/DL (3.4-5.0) Globulin 4.4 g/dL Albumin/Globulin Ratio 0.8 (1.0-2.7) L Lactic Acid Level 1.20 mmol/L (0.4-2.0) Current Medications Medications (Trade) Dose Ordered Sig/[place] Route PRN Reason Start Time Stop Time Status Last Admin Dose Admin Acetaminophen (Tylenol) 650 mg Q4H PRN ORAL Mild Pain (Pain Scale 1-3) 12/27/17 18:45 01/26/18 18:44 Aspirin (Ecotrin) 81 mg DAILY ORAL 12/27/17 19:00 01/26/18 18:59 12/28/17 09:13 Dextrose (Dextrose 50%) 25 ml Q30M PRN IV Hypoglycemia 12/27/17 18:45 01/26/18 18:44 Dextrose (Dextrose 50%) 50 ml Q30M PRN IV Hypoglycemia 12/27/17 18:45 01/26/18 18:44 Heparin Sodium (Porcine) (Heparin 5000 units/ml) 5,000 units EVERY 12 HOURS SUBQ 12/27/17 21:00 01/26/18 20:59 12/28/17 09:15 Levetiracetam (Keppra) 500 mg EVERY 12 HOURS ORAL 12/27/17 21:00 01/26/18 20:59 12/28/17 09:13 Sodium Chloride 1,000 ml @ 75 mls/hr [id number] IV 12/27/17 18:45 01/26/18 18:44 12/28/17 09:17 Vancomycin HCl (Vanco rx to dose) 1 ea DAILY PRN MISC Per rx protocol 12/27/17 19:00 01/26/18 18:59 Vancomycin HCl 1 gm/Dextrose 275 ml @ 183.708 mls/hr Q12H IVPB 12/28/17 09:00 01/02/18 08:59 12/28/17 09:13 Sadie Denton MD Dec 28, 2017 14:42
--- NOTE | 2017-12-28 14:58 | Cardiology Report ---
APPROVED REPORT EKG Measurement Heart [id number] Sinus rhythm Otherwise normal ECG
[2017-12-28 16:00] VITALS: BP 129/74
[2017-12-28] MEDS ORDERED: cefTRIAXone 1 GM in D5W 50 ML IVPB SCH (17:00)
[2017-12-28] MEDS: cefTRIAXone 1 GM in D5W 50 ML IVPB SCH (17:01)
--- NOTE | 2017-12-28 18:00 | Consultation ---
DATE OF CONSULTATION: 12/28/2017 INFECTIOUS DISEASES CONSULTATION CONSULTING PHYSICIAN: Sadie Denton M.D. ATTENDING PHYSICIAN: Kj Delgado M.D. REASON FOR CONSULTATION: Possible coagulase-negative Staph bacteremia, possible UTI, possible sepsis. CHIEF COMPLAINT: The patient's chief complaint coming into hospital is gram-positive bacteremia, UTI, and possible sepsis. HISTORY OF PRESENT ILLNESS: This is a very pleasant, 72-year-old female, who was recently at [facility] Emergency Room for orthostatic hypotension. At that time she had dizziness per the records, presyncope and lightheadedness. The patient had positive urinalysis with 2+ leukocyte esterase and 5 to 10 white blood cells. It is unclear if the patient was treated for urinary tract infection at that time. The patient got blood cultures on December 26, 2017 from the emergency room. The patient was noted to have positive blood cultures and was admitted to [facility] on January 01, 2018 for possible gram-positive bacteremia. The patient's blood culture grew out 2/4 coagulase-negative Staph. Repeat blood culture at [place] are pending. The patient started on vancomycin. The patient on 12/26/2017 in the ER visit had a positive UA with 2+ leukocyte esterase and 5 to 10 white blood cells. Infectious diseases consultation requested for antibiotic management. The patient will be placed on vancomycin and also Rocephin to cover possible urinary tract infection especially with presyncope and she could have a complicated UTI. Also the patient could be septic per the presyncope, dizziness, and weakness. The patient currently on vancomycin and Rocephin for now. REVIEW OF SYSTEMS: CONSTITUTIONAL: Generalized fatigue. No focal weakness. She did come in with dizziness and presyncope. Positive blood cultures. Currently she is alert and responsive. HEAD AND NECK: No head pain, neck pain, or neck stiffness. No change in vision. CARDIAC: No chest pain or palpitations. GASTROINTESTINAL: No nausea, vomiting, abdominal pain, or diarrhea. GENITOURINARY: No CVA tenderness. Plus or minus dysuria, frequency. PULMONARY: No congestion, shortness of breath, hemoptysis, or secretions. SKIN: No rash or itching. EXTREMITIES: No extremity pain. NEUROLOGIC: No seizures. She has no weight loss, night sweats, fevers. PAST MEDICAL HISTORY: The patient's past medical history includes history of the following. The patient has a past medical history of hypertension, seizure disorder, history of CVA, history of orthostatic hypotension, dizziness and weakness. No history of diabetes mentioned. History of right knee surgery and shoulder surgery in the past. She does have history of hyperlipidemia looks like about otherwise negative cardiac history. No history of cancer. ALLERGIES: Include cantaloupes. No antibiotic allergies. SOCIAL HISTORY: Negative for smoking, alcohol, or drug abuse. FAMILY HISTORY: Noncontributory. Negative for tuberculosis, diabetes or cancer. MEDICATIONS: Upon reviewing the MAR, she is on the following medications. I put her on Rocephin. She has been on vancomycin. She is on heparin. She is on Keppra. She is on aspirin and acetaminophen. She is on IV fluids . Outside medications were noted and reconciliated. She was on aspirin, Levetiracetam or Keppra. She was given nitrofurantoin it looks like. She is also on simvastatin or Zocor. PHYSICAL EXAMINATION: VITAL SIGNS: Temperature 97.4, pulse rate 72, respiratory rate 18, blood pressure 116/69, saturation is 100%. GENERAL: Alert and responsive, no acute distress. Oriented x3. HEAD AND NECK EXAM: Oral exam, no thrush. Eye exam, no icterus. Neck is supple. No JVD. Normocephalic. No acute process. NECK: Supple. LUNGS: Clear bilaterally. No rhonchi or rales. HEART: Regular. No obvious gallop. No friction rub. ABDOMEN: Soft. Positive bowel sounds. Nontender. SKIN: No rash. MUSCULOSKELETAL: No effusion. Legs are without cellulitis. PERIPHERAL VASCULAR: No cyanosis or gangrene. GENITOURINARY: No Cabrera. No CVA tenderness. LINE SITES: Without phlebitis. NEUROLOGIC: Intact. Nonfocal. Alert and oriented. LABORATORY AND DIAGNOSTIC DATA: Laboratory data as follows. White count 8.4, hemoglobin 12.0. Creatinine is 0.7. Chest x-ray from the recent ER visit was negative for consolidation. Blood cultures at that time grew out 2/4 coagulase-negative Staph. Urinalysis had 2+ leukocyte esterase, 5 to 10 white blood cells. No urine culture was done. Chest x-ray is negative. ASSESSMENT AND PLAN: 1. The patient has positive blood cultures with coagulase-negative Staph 2/4 likely contaminant. The patient does not have fevers. She does not have central line. She does not have cellulitis or open wounds. She was started on vancomycin for possible bacteremia and sepsis. She also has what looks like urinary tract infection and she has been given Macrobid, I believe. The patient is currently on vancomycin. I will add Rocephin for UTI coverage because of her symptoms. She certainly could have a complicated urinary tract infection with dizziness, presyncope, and generalized fatigue. Continue vancomycin and Rocephin. Recheck cultures here at this current admission. Blood cultures are negative. Consider stopping antibiotics and consider that the blood cultures from the ER visit 03/31 are likely contaminant with coagulase-negative Staph. We will check UA and C and S. Continue Rocephin for UTI. Pending culture results and urinalysis. 2. The patient has history of hypertension. Blood pressure treatment per primary. 3. Seizures. 4. CVA. 5. Obesity. 6. No history of diabetes. 7. Possible hyperlipidemia. 8. History of right knee surgery and right shoulder surgery. 9. The patient is on statin. 10. Dizziness, presyncope, orthostatic hypotension. 11. Allergies to cantaloupe. 12. No antibiotic allergies. 13. Social history is negative for smoking, alcohol, or drug abuse. 14. Family History is noncontributory. 15. MAR was noted. 16. Case discussed with RN. 17. Continue treatment per Dr. Delgado and consultants. 18. Notes and records were noted and orders were entered. Sadie Denton M.D. DR: Jorge JOB#: [id number] CC:
[2017-12-28 20:00] VITALS: BP 127/57
[2017-12-28] MEDS: Vancomycin 1 GM in D5W 275 ML IVPB SCH (21:41)
[2017-12-28 23:19] LABS: APPEARANCE,URINE SLIGHTLY CLOUDY; BILIRUBIN, URINE NEGATIVE (NEGATIVE); COLOR,URINE YELLOW; GLUCOSE, URINE (UA) NEGATIVE (NEGATIVE); KETONES,URINE NEGATIVE (NEGATIVE); LEUKOCYTE ESTERASE ,URINE 3+ (NEGATIVE); NITRITE,URINE NEGATIVE (NEGATIVE); PH,URINE 5 (4.5-8.0); PROTEIN,URINE 1+ (NEGATIVE); UROBILINOGEN,URINE 4 MG/DL (0.0-1.0)
[2017-12-29] VITALS: BP 107/59
[2017-12-29 04:00] VITALS: BP 112/56
[2017-12-29 08:04] VITALS: BP 125/72
[2017-12-29] MEDS: Aspirin EC 81mg tab ORAL SCH (08:19)
[2017-12-29] MEDS: Heparin 5000 units/ml inj SUBQ SCH ×2 (08:25→21:23)
[2017-12-29] MEDS: Vancomycin 1 GM in D5W 275 ML IVPB SCH ×2 (09:00→18:39)
--- NOTE | 2017-12-29 09:06 | Nephrology Progress Note ---
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 Eating well Objective Last 24 Hour Vital Signs Date Time Temp Pulse Resp B/P (MAP) Pulse Ox O2 Delivery O2 Flow Rate FiO2 12/29/17 08:04 98.1 70 19 125/72 (89) 96 12/29/17 04:00 98.2 74 19 112/56 (74) 95 12/29/17 02:25 97.8 12/29/17 00:00 98.5 73 18 107/59 (75) 96 12/28/17 21:00 Room Air 12/28/17 20:00 97.8 71 19 127/57 (80) 94 12/28/17 16:00 74 12/28/17 16:00 98.4 76 18 129/74 (92) 97 12/28/17 12:00 97.4 69 18 116/69 (85) 100 12/28/17 12:00 73 Intake and Output 12/28/17 12/29/17 18:59 06:59 Intake Total 240 ml 1445.000 ml Output Total 130 ml Balance 240 ml 1315.000 ml Intake Oral 240 ml 420 ml IV Total 1025.000 ml Output Urine Total 130 ml # Voids 4 # Bowel Movements 1 Laboratory Tests 12/28/17 22:15: Urine Color Yellow, Urine Appearance Slightly cloudy, Urine pH 5, Urine Specific [place] 1.020, Urine Protein 1+H, Urine Glucose (UA) Negative, Urine Ketones Negative, Urine Blood 4+H, Urine Nitrite Negative, Urine Bilirubin Negative, Urine Urobilinogen 4H, Urine Leukocyte Esterase 3+H, Urine RBC 10-15H , Urine WBC 5-10H, Urine Squamous Epithelial Cells Few, Urine Bacteria Few 12/29/17 07:50: Vancomycin Level Trough 8.4 Height (Feet): 5 Height (Inches): 4.00 Weight (Pounds): 268 General Appearance: no apparent distress, alert EENT: normal ENT inspection Neck: normal alignment, supple Cardiovascular: normal rate, regular rhythm Respiratory/Chest: lungs clear, normal breath sounds Abdomen: non tender, soft Edema: no edema noted Arm (L), no edema noted Arm (R), no edema noted Leg (L), no edema noted Leg (R), no edema noted Pedal (L), no edema noted Pedal (R), no edema noted Generalized Jarocho Cano MD Dec 29, 2017 09:06
[2017-12-29 12:00] VITALS: BP 120/65
[2017-12-29 16:00] VITALS: BP 133/64
[2017-12-29] MEDS: cefTRIAXone 1 GM in D5W 50 ML IVPB SCH (17:40)
[2017-12-29 20:00] VITALS: BP 133/85
[2017-12-30] VITALS (7 sets, daily range): BP systolic 120–145; BP diastolic 60–68
[2017-12-30] MEDS: Vancomycin 1 GM in D5W 275 ML IVPB SCH (02:08)
[2017-12-30 07:38] LABS: BASOPHILS % (AUTO) 1.3 % (0.0-2.0); EOSINOPHILS % (AUTO) 3.4 % (0.0-3.0); HEMATOCRIT 36.9 % (37.0-47.0); HEMOGLOBIN 12.7 G/DL (12.0-16.0); LYMPHOCYTES % (AUTO) 14.9 % (20.0-45.0); MEAN CORPUSCULAR VOLUME 85 FL (80-99); MONOCYTES % (AUTO) 6.6 % (1.0-10.0); NEUTROPHILS % (AUTO) 73.7 % (45.0-75.0); PLATELET COUNT 232 K/UL (150-450); RED BLOOD COUNT 4.35 M/UL (4.20-5.40); RED CELL DISTRIBUTION WIDTH 11.8 % (11.6-14.8); WHITE BLOOD COUNT 7.4 K/UL (4.8-10.8)
[2017-12-30 08:03] LABS: ANION GAP 7 mmol/L (5-15); BLOOD UREA NITROGEN 8 mg/dL (7-18); CALCIUM 8.2 MG/DL (8.5-10.1); CARBON DIOXIDE 25 MMOL/L (21-32); CHLORIDE 107 MMOL/L (98-107); CREATININE 0.6 MG/DL (0.55-1.30); POTASSIUM 3.5 MMOL/L (3.5-5.1); SODIUM 139 MMOL/L (136-145)
[2017-12-30] MEDS: Aspirin EC 81mg tab ORAL SCH (09:37)
[2017-12-30] MEDS: Heparin 5000 units/ml inj SUBQ SCH ×2 (09:38→21:01)
--- NOTE | 2017-12-30 11:25 | Infectious Diseases Prog Note ---
Assessment/Plan Assessment/Plan ASSESSMENT AND PLAN: 1. coagulase neg staph blood cultures likely a contaminant, possible uti, + ua - surveillance blood cultures negative prior to vancomycin - discontinue vancomycin and rocephin - ceftin po x 3 days - stable from ID standpoint 2. The patient has history of hypertension. Blood pressure treatment per primary. 3. Seizures. 4. CVA. 5. Obesity. 6. No history of diabetes. 7. Possible hyperlipidemia. 8. History of right knee surgery and right shoulder surgery. 9. The patient is on statin. 10. Dizziness, presyncope, orthostatic hypotension. 11. Allergies to cantaloupe. 12. No antibiotic allergies. 13. Social history is negative for smoking, alcohol, or drug abuse. 14. Family History is noncontributory. 15. MAR was noted. 16. Case discussed with RN. 17. Continue treatment per Dr. Delgado and consultants. 18. Notes and records were noted and orders were entered. Subjective Constitutional: Denies: fever HEENT: Denies: congestion Respiratory: Denies: shortness of breath Cardiovascular: Denies: chest pain Gastrointestinal/Abdominal: Denies: nausea, vomiting, diarrhea Genitourinary: Reports: other - no ramires Neurologic: Denies: headache Psychiatric: Denies: depression Skin: Denies: rash Hematologic: Denies: bleeding Musculoskeletal: Denies: pain Allergies: Coded Allergies: Cantaloupe (Verified Allergy, Unknown, 06/18/16) Objective Vital Signs Last 24 Hour Vital Signs Date Time Temp Pulse Resp B/P (MAP) Pulse Ox O2 Delivery O2 Flow Rate FiO2 12/30/17 08:00 98.1 82 20 136/67 (90) 97 12/30/17 04:46 97.9 76 20 120/64 (82) 96 12/30/17 00:00 98.1 90 20 120/60 (80) 96 12/29/17 21:00 Room Air 12/29/17 20:00 98.5 84 20 133/85 (101) 98 12/29/17 16:00 97.3 90 20 133/64 (87) 97 12/29/17 12:00 97.6 69 19 120/65 (83) 97 Height (Feet): 5 Height (Inches): 4.00 Weight (Pounds): 268 General Appearance: no acute distress HEENT: normocephalic, atraumatic, anicteric, mucous membranes moist Respiratory/Chest: lungs clear, normal breath sounds, no respiratory distress, no accessory muscle use Cardiovascular: normal rate, regular rhythm, no gallop/murmur, no JVD Abdomen: normal bowel sounds, soft, non tender, no organomegaly Genitourinary: other - no ramires Extremities: no cyanosis Skin: no rash 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 Complete 12/28/17 22:15 Urine,Clean Catch Urine Culture - Preliminary NO GROWTH AFTER 24 HOURS Resulted 12/28/17 18:00 Rectum VRE Culture - Final NO VANCOMYCIN RESISTANT ENTEROCOCCUS ... Complete 12/27/17 18:00 Rectum - Final NO CARBAPENEM-RESISTANT ENTEROBACTERI... Complete Laboratory Tests Test 12/30/17 07:09 White Blood Count 7.4 K/UL (4.8-10.8) Red Blood Count 4.35 M/UL (4.20-5.40) Hemoglobin 12.7 G/DL (12.0-16.0) Hematocrit 36.9 % (37.0-47.0) L Mean Corpuscular Volume 85 FL (80-99) Mean Corpuscular Hemoglobin 29.3 PG (27.0-31.0) Mean Corpuscular Hemoglobin Concent 34.6 G/DL (32.0-36.0) Red Cell Distribution Width 11.8 % (11.6-14.8) Platelet Count 232 K/UL (150-450) Mean Platelet Volume 9.6 FL (6.5-10.1) Neutrophils (%) (Auto) 73.7 % (45.0-75.0) Lymphocytes (%) (Auto) 14.9 % (20.0-45.0) L Monocytes (%) (Auto) 6.6 % (1.0-10.0) Eosinophils (%) (Auto) 3.4 % (0.0-3.0) H Basophils (%) (Auto) 1.3 % (0.0-2.0) Sodium Level 139 MMOL/L (136-145) Potassium Level 3.5 MMOL/L (3.5-5.1) Chloride Level 107 MMOL/L (98-107) Carbon Dioxide Level 25 MMOL/L (21-32) Anion Gap 7 mmol/L (5-15) Blood Urea Nitrogen 8 mg/dL (7-18) Creatinine 0.6 MG/DL (0.55-1.30) Estimat Glomerular Filtration Rate > 60 mL/min (>60) Glucose Level 97 MG/DL (74-106) Calcium Level 8.2 MG/DL (8.5-10.1) L Current Medications Medications (Trade) Dose Ordered Sig/[place] Route PRN Reason Start Time Stop Time Status Last Admin Dose Admin Acetaminophen (Tylenol) 650 mg Q4H PRN ORAL Mild Pain (Pain Scale 1-3) 12/28/17 15:47 01/26/18 15:46 12/29/17 01:55 Aspirin (Ecotrin) 81 mg DAILY ORAL 12/29/17 09:00 01/26/18 18:59 12/30/17 09:37 Ceftriaxone Sodium 1 gm/ Dextrose 50 ml @ 100 mls/hr Q24H IVPB 12/28/17 17:00 01/04/18 16:59 12/29/17 17:40 Dextrose (Dextrose 50%) 25 ml Q30M PRN IV Hypoglycemia 12/28/17 15:45 01/26/18 18:44 Dextrose (Dextrose 50%) 50 ml Q30M PRN IV Hypoglycemia 12/28/17 15:45 01/26/18 18:44 Heparin Sodium (Porcine) (Heparin 5000 units/ml) 5,000 units EVERY 12 HOURS SUBQ 12/28/17 21:00 01/26/18 20:59 12/30/17 09:38 Levetiracetam (Keppra) 500 mg EVERY 12 HOURS ORAL 12/28/17 21:00 01/26/18 20:59 12/30/17 09:37 Sodium Chloride 1,000 ml @ 75 mls/hr [id number] IV 12/28/17 16:34 01/26/18 16:33 12/29/17 21:08 Vancomycin HCl (Vanco rx to dose) 1 ea DAILY PRN MISC Per rx protocol 12/29/17 09:00 01/26/18 18:59 Vancomycin HCl 1 gm/Dextrose 275 ml @ 183.708 mls/hr Q8HR@0200,1000,1800 IVPB 12/29/17 18:00 01/03/18 17:59 12/30/17 02:08 Sadie Denton MD Dec 30, 2017 11:25
--- NOTE | 2017-12-30 18:28 | Internal Med Progress Note ---
Subjective Date of Service: Dec 30, 2017 Physician Name Giorgio Blackmon Attending Physician Kj Delgado MD Current Medications Medications (Trade) Dose Ordered Sig/[place] Route PRN Reason Start Time Stop Time Status Last Admin Dose Admin Acetaminophen (Tylenol) 650 mg Q4H PRN ORAL Mild Pain (Pain Scale 1-3) 12/28/17 15:47 01/26/18 15:46 12/29/17 01:55 Aspirin (Ecotrin) 81 mg DAILY ORAL 12/29/17 09:00 01/26/18 18:59 12/30/17 09:37 Cefuroxime Axetil (Ceftin) 500 mg EVERY 12 HOURS ORAL 12/30/17 21:00 01/06/18 20:59 Dextrose (Dextrose 50%) 25 ml Q30M PRN IV Hypoglycemia 12/28/17 15:45 01/26/18 18:44 Dextrose (Dextrose 50%) 50 ml Q30M PRN IV Hypoglycemia 12/28/17 15:45 01/26/18 18:44 Heparin Sodium (Porcine) (Heparin 5000 units/ml) 5,000 units EVERY 12 HOURS SUBQ 12/28/17 21:00 01/26/18 20:59 12/30/17 09:38 Levetiracetam (Keppra) 500 mg EVERY 12 HOURS ORAL 12/28/17 21:00 01/26/18 20:59 12/30/17 09:37 Sodium Chloride 1,000 ml @ 75 mls/hr [id number] IV 12/28/17 16:34 01/26/18 16:33 12/29/17 21:08 Allergies: Coded Allergies: Cantaloupe (Verified Allergy, Unknown, 06/18/16) ROS Limited/Unobtainable: No Constitutional: Reports: no symptoms HEENT: Reports: no symptoms Cardiovascular: Reports: no symptoms Respiratory: Reports: no symptoms Gastrointestinal/Abdominal: Reports: no symptoms Genitourinary: Reports: no symptoms Neurologic/Psychiatric: Reports: no symptoms Subjective 72 YO F admitted with orthostatic hypotension and vertigo. Now sepsis. Cover for Int Med-Dr Delgado. Objective Last Vital Signs Date Time Temp Pulse Resp B/P (MAP) Pulse Ox O2 Delivery O2 Flow Rate FiO2 12/30/17 16:00 98.8 63 22 144/68 (93) 97 12/30/17 09:00 Room Air General Appearance: WD/WN, no apparent distress, obese EENT: PERRL/EOMI, normal ENT inspection Neck: non-tender, normal alignment, supple, normal inspection Cardiovascular: normal peripheral pulses, normal rate, regular rhythm, no gallop/murmur, no JVD Respiratory/Chest: chest wall non-tender, lungs clear, normal breath sounds, no respiratory distress, no accessory muscle use Abdomen: normal bowel sounds, non tender, soft, no organomegaly, no mass Extremities: normal range of motion Edema: trace edema 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, no motor/sensory deficits Laboratory Tests Test 12/30/17 07:09 White Blood Count 7.4 K/UL (4.8-10.8) Red Blood Count 4.35 M/UL (4.20-5.40) Hemoglobin 12.7 G/DL (12.0-16.0) Hematocrit 36.9 % (37.0-47.0) L Mean Corpuscular Volume 85 FL (80-99) Mean Corpuscular Hemoglobin 29.3 PG (27.0-31.0) Mean Corpuscular Hemoglobin Concent 34.6 G/DL (32.0-36.0) Red Cell Distribution Width 11.8 % (11.6-14.8) Platelet Count 232 K/UL (150-450) Mean Platelet Volume 9.6 FL (6.5-10.1) Neutrophils (%) (Auto) 73.7 % (45.0-75.0) Lymphocytes (%) (Auto) 14.9 % (20.0-45.0) L Monocytes (%) (Auto) 6.6 % (1.0-10.0) Eosinophils (%) (Auto) 3.4 % (0.0-3.0) H Basophils (%) (Auto) 1.3 % (0.0-2.0) Sodium Level 139 MMOL/L (136-145) Potassium Level 3.5 MMOL/L (3.5-5.1) Chloride Level 107 MMOL/L (98-107) Carbon Dioxide Level 25 MMOL/L (21-32) Anion Gap 7 mmol/L (5-15) Blood Urea Nitrogen 8 mg/dL (7-18) Creatinine 0.6 MG/DL (0.55-1.30) Estimat Glomerular Filtration Rate > 60 mL/min (>60) Glucose Level 97 MG/DL (74-106) Calcium Level 8.2 MG/DL (8.5-10.1) L Microbiology Date/Time Source Procedure Growth Status 12/28/17 22:15 Urine,Clean Catch Urine Culture - Preliminary NO GROWTH AFTER 24 HOURS Resulted 12/28/17 18:00 Rectum VRE Culture - Final NO VANCOMYCIN RESISTANT ENTEROCOCCUS ... Complete Intake and Output 12/29/17 12/30/17 18:59 06:59 Intake Total 1535.000 ml 1100.000 ml Balance 1535.000 ml 1100.000 ml Intake Oral 960 ml 600 ml IV Total 575.000 ml 500.000 ml # Voids 2 6 # Bowel Movements 1 2 Assessment/Plan Problem List: (1) Sepsis Assessment & Plan: ?UTI vs sepsis? Coag neg staph. See ID note. Continue oral cefuroxime (2) Hypotension Assessment & Plan: Resolving; due to sepsis (3) Cerebral vascular disease (4) Seizure disorder Assessment & Plan: Continue keppra (5) Hypertension (6) Obesity Status: progressing Assessment/Plan discharge planning Giorgio Blackmno MD Dec 30, 2017 18:28
[2017-12-31 04:31] VITALS: BP 135/81
[2017-12-31 07:59] LABS: BASOPHILS % (AUTO) 1.4 % (0.0-2.0); EOSINOPHILS % (AUTO) 3.3 % (0.0-3.0); HEMATOCRIT 37.1 % (37.0-47.0); HEMOGLOBIN 12.7 G/DL (12.0-16.0); LYMPHOCYTES % (AUTO) 14.5 % (20.0-45.0); MEAN CORPUSCULAR VOLUME 85 FL (80-99); NEUTROPHILS % (AUTO) 73.8 % (45.0-75.0); PLATELET COUNT 237 K/UL (150-450); RED BLOOD COUNT 4.39 M/UL (4.20-5.40); WHITE BLOOD COUNT 9.2 K/UL (4.8-10.8)
[2017-12-31 08:00] VITALS: BP 118/59
[2017-12-31 08:17] LABS: ANION GAP 8 mmol/L (5-15); BLOOD UREA NITROGEN 5 mg/dL (7-18); CALCIUM 8.7 MG/DL (8.5-10.1); CARBON DIOXIDE 26 MMOL/L (21-32); CHLORIDE 106 MMOL/L (98-107); CREATININE 0.6 MG/DL (0.55-1.30); POTASSIUM 3.6 MMOL/L (3.5-5.1); SODIUM 140 MMOL/L (136-145)
[2017-12-31] MEDS: Aspirin EC 81mg tab ORAL SCH (09:19)
[2017-12-31] MEDS: Heparin 5000 units/ml inj SUBQ SCH (09:21)
--- NOTE | 2017-12-31 11:20 | Infectious Diseases Prog Note ---
Assessment/Plan Assessment/Plan ASSESSMENT AND PLAN: 1. coagulase neg staph blood cultures likely a contaminant, possible uti, + ua - surveillance blood cultures negative prior to vancomycin - ceftin po x 2 days - clinically stable 2. The patient has history of hypertension. Blood pressure treatment per primary. 3. Seizures. 4. CVA. 5. Obesity. 6. No history of diabetes. 7. Possible hyperlipidemia. 8. History of right knee surgery and right shoulder surgery. 9. The patient is on statin. 10. Dizziness, presyncope, orthostatic hypotension. 11. Allergies to cantaloupe. 12. No antibiotic allergies. 13. Social history is negative for smoking, alcohol, or drug abuse. 14. Family History is noncontributory. 15. MAR was noted. 16. Case discussed with RN. 17. Continue treatment per Dr. Delgado and consultants. 18. Notes and records were noted and orders were entered. Subjective Constitutional: Reports: fatigue; Denies: fever HEENT: Denies: congestion Respiratory: Denies: shortness of breath Cardiovascular: Denies: chest pain Gastrointestinal/Abdominal: Denies: nausea, vomiting, diarrhea Genitourinary: Reports: other - no ramires Neurologic: Denies: headache Psychiatric: Denies: depression Skin: Denies: rash Hematologic: Denies: bleeding Musculoskeletal: Denies: pain Allergies: Coded Allergies: Cantaloupe (Verified Allergy, Unknown, 06/18/16) Objective Vital Signs Last 24 Hour Vital Signs Date Time Temp Pulse Resp B/P (MAP) Pulse Ox O2 Delivery O2 Flow Rate FiO2 12/31/17 09:00 Room Air 12/31/17 08:00 97.9 87 20 118/59 (78) 93 12/31/17 04:31 98.2 100 19 135/81 (99) 96 12/30/17 23:56 98.3 90 17 126/64 (84) 96 12/30/17 21:14 Room Air 12/30/17 20:24 98.4 88 18 124/66 (85) 96 12/30/17 16:00 98.8 63 22 144/68 (93) 97 12/30/17 12:00 98.1 78 22 145/63 (90) 95 Height (Feet): 5 Height (Inches): 4.00 Weight (Pounds): 268 General Appearance: no acute distress HEENT: normocephalic, atraumatic, anicteric, mucous membranes moist Respiratory/Chest: lungs clear, normal breath sounds, no respiratory distress, no accessory muscle use Cardiovascular: normal rate, regular rhythm, no gallop/murmur, no JVD Abdomen: normal bowel sounds, soft, non tender, no organomegaly, non distended Genitourinary: other - no ramires, no cva pain Extremities: no cyanosis Skin: no rash 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 Complete 12/28/17 22:15 Urine,Clean Catch Urine Culture - Final NO GROWTH AFTER 48 HOURS Complete 12/28/17 18:00 Rectum VRE Culture - Final NO VANCOMYCIN RESISTANT ENTEROCOCCUS ... Complete Microbiology Date/Time Source Procedure Growth Status 12/28/17 22:15 Urine,Clean Catch Urine Culture - Final NO GROWTH AFTER 48 HOURS Complete 12/28/17 18:00 Rectum VRE Culture - Final NO VANCOMYCIN RESISTANT ENTEROCOCCUS ... Complete Laboratory Tests Test 12/31/17 07:20 White Blood Count 9.2 K/UL (4.8-10.8) Red Blood Count 4.39 M/UL (4.20-5.40) Hemoglobin 12.7 G/DL (12.0-16.0) Hematocrit 37.1 % (37.0-47.0) Mean Corpuscular Volume 85 FL (80-99) Mean Corpuscular Hemoglobin 28.9 PG (27.0-31.0) Mean Corpuscular Hemoglobin Concent 34.1 G/DL (32.0-36.0) Red Cell Distribution Width 12.0 % (11.6-14.8) Platelet Count 237 K/UL (150-450) Mean Platelet Volume 9.0 FL (6.5-10.1) Neutrophils (%) (Auto) 73.8 % (45.0-75.0) Lymphocytes (%) (Auto) 14.5 % (20.0-45.0) L Monocytes (%) (Auto) 7.0 % (1.0-10.0) Eosinophils (%) (Auto) 3.3 % (0.0-3.0) H Basophils (%) (Auto) 1.4 % (0.0-2.0) Sodium Level 140 MMOL/L (136-145) Potassium Level 3.6 MMOL/L (3.5-5.1) Chloride Level 106 MMOL/L (98-107) Carbon Dioxide Level 26 MMOL/L (21-32) Anion Gap 8 mmol/L (5-15) Blood Urea Nitrogen 5 mg/dL (7-18) L Creatinine 0.6 MG/DL (0.55-1.30) Estimat Glomerular Filtration Rate > 60 mL/min (>60) Glucose Level 107 MG/DL (74-106) H Calcium Level 8.7 MG/DL (8.5-10.1) Current Medications Medications (Trade) Dose Ordered Sig/[place] Route PRN Reason Start Time Stop Time Status Last Admin Dose Admin Acetaminophen (Tylenol) 650 mg Q4H PRN ORAL Mild Pain (Pain Scale 1-3) 12/28/17 15:47 01/26/18 15:46 12/29/17 01:55 Aspirin (Ecotrin) 81 mg DAILY ORAL 12/29/17 09:00 01/26/18 18:59 12/31/17 09:19 Cefuroxime Axetil (Ceftin) 500 mg EVERY 12 HOURS ORAL 12/30/17 21:00 01/06/18 20:59 12/31/17 09:18 Dextrose (Dextrose 50%) 25 ml Q30M PRN IV Hypoglycemia 12/28/17 15:45 01/26/18 18:44 Dextrose (Dextrose 50%) 50 ml Q30M PRN IV Hypoglycemia 12/28/17 15:45 01/26/18 18:44 Heparin Sodium (Porcine) (Heparin 5000 units/ml) 5,000 units EVERY 12 HOURS SUBQ 12/28/17 21:00 01/26/18 20:59 12/31/17 09:21 Levetiracetam (Keppra) 500 mg EVERY 12 HOURS ORAL 12/28/17 21:00 01/26/18 20:59 12/31/17 09:19 Sodium Chloride 1,000 ml @ 75 mls/hr [id number] IV 12/28/17 16:34 01/26/18 16:33 12/29/17 21:08 Sadie Denton MD Dec 31, 2017 11:20
[2017-12-31 12:00] VITALS: BP 141/75
[2017-12-31 16:00] VITALS: BP 143/69
[2017-12-31] MEDS ORDERED: CEFUROXIME250 MG ORAL (17:14)
--- NOTE | 2017-12-31 17:19 | Discharge Summary ---
Discharge Summary Hospital Course Date of Admission Dec 27, 2017 at 17:45 Date of Discharge Admitting Diagnosis gram positive sepsis, urinary tract infection HPI Areli Rodas is a 72 year old female who was admitted on Dec 27, 2017 at 17: 45 for Gram Positive Sepsis, Urinary Tract Infetion dc summary dictated [id number] Discharge Discharge Disposition Patient was discharged to Kj Delgado MD Dec 31, 2017 17:18
[2017-12-31] MEDS ORDERED: MIRALAX17 G2 ORAL (17:43)
--- NOTE | 2018-01-01 04:45 | Discharge Summary ---
DATE OF ADMISSION: 12/27/2017 DATE OF DISCHARGE: 12/31/2017 REASON FOR ADMISSION: Positive blood culture. BRIEF HOSPITAL COURSE AND SUMMARY: This is a 72-year-old female with history of hypertension, seizure disorder, and CVA who presented to the emergency room for orthostatic hypotension, dizziness, and weakness a day prior and had blood cultures drawn and was discharged home. She was called back to return to the emergency room for gram-positive cocci in her blood cultures. The patient was started empirically on antibiotics. Her blood culture grew out coag-negative staph, likely contaminant and possible UTI, and she was started on Ceftin to complete three more days. The patient has severe weakness and also has issues with orthostasis; therefore, we started her on IV fluids. She is stable for discharge to group home facility for further rehab given she is in a wheelchair and at baseline, is able to walk. DISCHARGE CONDITION: Stable. DISCHARGE INSTRUCTIONS: The patient is being discharged to group home facility. DISCHARGE DIAGNOSES: 1. Coag-negative staph blood culture. 2. Seizure disorder. 3. CVA. 4. Obesity. 5. Hypertension. 6. Weakness and falls. 7. Hyperlipidemia. Kj Delgado MD DR: PETTY JOB#: [id number] CC:
== END 2017-12-31 20:15 | DRG 690 ==
LOC: EMR 17:34 → 2E 17:45 → EDBEDREQ 18:19 → 3E 12-28 16:33
DX: N39.0 Urinary tract infection, site not specified (principal); Z68.42 Body mass index [BMI] 45.0-49.9, adult; G40.909 Epilepsy, unspecified, not intractable, without status epilepticus; I10 Essential (primary) hypertension; Z86.73 Personal history of transient ischemic attack (TIA), and cerebral infarction without residual deficits; I95.1 Orthostatic hypotension; E66.01 Morbid (severe) obesity due to excess calories; R53.1 Weakness; Z91.81 History of falling; E78.5 Hyperlipidemia, unspecified
CPT/HCPCS: 36415; 80048; 80053; 80202; 80299; 81003; 83605; 85025; 87040; 87081; 87086; 93005; 96361; 96365; 99285